=== PATIENT | male | born 1955 | race Caucasian/White ===

== ENCOUNTER 2019-12-17 07:01 | Inpatient (IN) ==
--- OUTSIDE RECORDS SUMMARY | 2019-12-17 07:05 | External Medical Summary | Continuity of Care Document ---
:1955 Author Name Ana Allen Address Unavailable Unavailable , Care Team Providers Name Role Phone Petey [email or web address] PCP, [email or web address] Unavailable Unavailable Problems Active medical history not documented Allergies and Adverse Reactions Allergy history not documented Medications Medications not documented Procedures Procedures not documented Immunizations Immunizations not documented Plan of Treatment Planned Observations Planned Goals not documented Results No Known Results Results not documented
[2019-12-17] MEDS ORDERED: DEXAMETHASONE SOD INJ 10 MG/ML VIAL IV ONE (07:32)
--- NOTE | 2019-12-17 07:41 | Emergency Department Note ---
Impression & Plan Bilateral leg weakness, Reflex loss, Fall, Lower back pain ED Provider Note NAME: WILLY PACHECO AGE: 64 SEX: M : 1955 ARRIVES VIA: Ambulance INFORMANT: [Patient] ED PROVIDER(S): [Jaxon Stahl MD] CHIEF COMPLAINT: Leg weakness HISTORY OF PRESENT ILLNESS: The patient is a 64-year-old male who states that he has been doing some heavy lifting last few days as he just moved. Last night he went to bed feeling fine. This morning, around 2 hours ago, he awoke and had some 3/10 pressure in his lower back. He had tingling in both feet. Patient got up to go to the bathroom and noticed his legs were weak. He did urinate without difficulty. On the way back from the bathroom, his legs gave out and he collapsed. He could not stand. He did call EMS. The patient has no headache, no neck pain. He has no upper extremity weakness or tingling. He does complain currently of some bilateral leg tingling basically from his knees to his toes. He feels his legs are weak and he cannot support his weight. There is no abdominal pain, he has had no diarrhea or vomiting. No rash. The patient states that he has been in baseline health. He never has had issues like this before. Of note, the patient did have a flu vaccination around 2 weeks ago. REVIEW OF SYSTEMS: See HPI for pertinent positives and negatives. A total of ten systems were reviewed and were otherwise negative. PMHx/PSHx: See Below SOCIAL HISTORY: See Below. PHYSICAL EXAM: GENERAL: Patient is in no acute distress. HEENT: No acute trauma, normocephalic atraumatic, mucous membranes moist, no nasal congestion, no scleral icterus. NECK: No stridor, no adenopathy, no meningismus, trachea is midline. LUNGS: Clear to auscultation bilaterally, no wheeze, no rhonchi, breath sounds equal. HEART: Without murmurs gallops or rubs, regular rate and rhythm. ABDOMEN: Soft, nontender, bowel sounds positive, no hernias, no peritonitis. EXTREMITIES: No cyanosis or edema, full range of motion of all the joints without pain or difficulty, no signs for acute trauma. Strong dorsalis pedis pulses bilaterally. NEUROLOGIC: Oriented x 3. He does have strong upper extremities. He has 2/4 reflexes at both biceps. The patient is able to plantar flex both feet but he cannot dorsiflex either foot. He cannot lift either leg off the bed. He does have sensation to both lower extremities bilaterally. There are no reflexes of the patella or Achilles bilaterally. He does have sensation at the groin and scrotum. SKIN: No rash, no jaundice, no diaphoresis. Back: Nontender thoracic or lumbar spine, no rash, no bony step-off. DIFFERENTIAL DIAGNOSIS: Infection, dehydration, metabolic abnormality, hypo/hyperglycemia, Lyme disease, transverse myelitis, Barbara Arshad syndrome, cord compression, disc herniation, epidural hematoma, epidural abscess, meningitis or encephalitis, electrolyte disturbance, anemia, hypoxia, cardiac sources, intracerebral event, toxicologic, neurologic, as well as other pathologies. EMERGENCY DEPARTMENT COURSE/PROCEDURES: Lumbar puncture: This procedure was performed by me. Risks and benefits of the procedure were discussed. Patient was placed on his left side with his knees to his chest. Lumbar landmarks were identified. Betadine was used for prep. Sterile drapes were applied. Using sterile technique, lidocaine was used to anesthetize the lumbar area. Using sterile technique, I was able to access the spinal canal with a 22-gauge spinal needle. There were no complications. Fluid was collected for analysis and sent to the lab. Patient tolerated the procedure well. Critical Care Note: I have personally spent 41 minutes of critical care time in the direct management of this patient. This includes bedside care, interpretation of diagnostic studies, and testing, discussion with consultants, patient, and family members, and other required patient management activities. This 41 minutes is in excess of all separately billable procedures. MEDICAL DECISION MAKING: There is no leukocytosis or concerning anemia. There is a normal platelet count. There is some renal insufficiency but this appears baseline looking back at previous testing. No concerning electrolyte abnormality. No liver enzyme elevation. The patient appears to be in a euthyroid state. B12 level was normal. Total CK was normal. CSF fluid did not show any white cells or red cells. The protein and glucose values were within normal range. The patient's CSF cultures are pending. MRIs of the thoracic and lumbar spine were performed, there was some arthritis, no cord lesion, no cord compression. Lyme disease testing was negative. Coronavirus testing was negative. On my exam, the patient had no reflexes in his Achilles or patella bilaterally. He had strong upper extremity reflexes. He had significant weakness in his lower extremities on strength testing. The patient received IV Decadron, he was given IV saline. A lumbar puncture was performed without difficulty. Please see above procedure note. The cause for the patient's symptoms is not completely clear. I am concerned though about Barbara Sealy syndrome. Transverse myelitis is a thought however, with a unremarkable MRI of the thoracic and lumbar spine, this seems less likely. I did speak with neurology here at [facility]. They recommended transfer to a tertiary care center. I spoke to [facility]. The neurologist there, , did accept the patient however, the facility was at capacity. Patient is on a waiting list for transfer and will likely be transferred to their facility tomorrow. They asked that we hospi talize the patient at our facility until a bed becomes available. I spoke to neurology. They were comfortable with keeping the patient here for now. I did speak with case management, the on-call hospitalist was consulted. At this point, the true cause for this condition is unclear, further work- up/testing is warranted. 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 Beliefs That Will Affect Care: None marital status: Current Living Situation: Spouse Feels Safe at Home: Yes Assistive Devices: None Allergies Allergies Allergy/AdvReac Type Severity Reaction Status Date / Time No Known Allergies Allergy Verified 12/17/19 07:37 Home Meds Home Medications Medication Instructions Recorded Confirmed aspirin 81 mg PO QAM 05/25/18 12/17/19 omega 1-ltj-hbl-fish oil [Fish Oil] 1,000 mg PO QAM 05/25/18 12/17/19 ascorbic acid (vitamin C) [Vitamin 500 mg PO QAM 12/17/19 12/17/19 C] atorvastatin 80 mg PO HS 12/17/19 12/17/19 losartan 50 mg PO QAM 12/17/19 12/17/19 multivitamin 1 tab PO QAM 12/17/19 12/17/19 Previous Rx's Medication Instructions Recorded metoprolol succinate 50 mg PO HS #30 tab 05/27/18 ticagrelor [Brilinta] 90 mg PO BID #60 tab 05/27/18 Results & Data (ED) Vital Signs Vital Signs - 24 hr 12/17/19 07:11 12/17/19 10:01 12/17/19 11:00 Temperature 37.0 C Temperature Source Oral Pulse Rate 67 Pulse Rate [Finger] 66 72 Respiratory Rate 16 16 16 Blood Pressure 150/99 H Blood Pressure [Right Arm] 141/93 H 130/88 Blood Pressure Mean 116 Blood Pressure Mean [Right Arm] 109 102 Pulse Oximetry 97 93 95 Oxygen Delivery Method Room Air Room Air Room Air Sepsis Recent Fever Within 48 Hours No Sepsis New/Unexplained Change in Mental Status N/A Sepsis Action Taken by Nursing No Action Required 12/17/19 13:00 Temperature Temperature Source Pulse Rate Pulse Rate [Finger] 69 Respiratory Rate 16 Blood Pressure Blood Pressure [Right Arm] 119/75 Blood Pressure Mean Blood Pressure Mean [Right Arm] 89 Pulse Oximetry 94 Oxygen Delivery Method Room Air Sepsis Recent Fever Within 48 Hours Sepsis New/Unexplained Change in Mental Status Sepsis Action Taken by Long-Term Medications Current Medication List: was personally reviewed by me Laboratory Data Attestation: I reviewed the patient's lab results. Result diagrams: 12/17/19 07:50 12/17/19 07:50 Lab Results 12/17/19 12/17/19 12/17/19 Range/Units 07:50 07:50 07:50 WBC 6.47 (4.8-10.8) K/uL RBC 4.59 L (4.7-6.1) M/uL Hgb 14.2 (14.0-18.0) g/dL Hct 43.0 (42-52) % MCV 93.7 (80-100) fL MCH 30.9 (25-34) pg MCHC 33.0 (32-36) g/dL RDW Std Deviation 47.0 H (36.4-46.3) fL RDW Coeff of Miri 13.7 (11.5-14.5) % Plt Count 231 (130-400) K/uL MPV 11.6 H (7.4-10.4) fL Immature Gran % (Auto) 0.2 % Neut % (Auto) 70.0 % Lymph % (Auto) 15.0 % Lucas % (Auto) 11.3 % Eos % (Auto) 2.9 % Baso % (Auto) 0.6 % Neut # (Auto) 4.53 (1.4-6.5) K/uL Lymph # (Auto) 0.97 L (1.2-3.4) K/uL Lucas # (Auto) 0.73 H (0.11-0.59) K/uL Eos # (Auto) 0.19 (0-0.5) K/uL Baso # (Auto) 0.04 (0-0.2) K/uL Immature Gran # (Auto) 0.01 (0.00-0.02) K/uL ESR 11 (0-14) mm/hr Sodium 141 (136-145) mmol/L Potassium 3.9 (3.5-5.1) mmol/L Chloride 111 H (98-107) mmol/L Carbon Dioxide 24 (21-32) mmol/L Anion Gap 6.0 (3-11) BUN 35 H (7-18) mg/dl Creatinine 1.68 H (0.6-1.4) mg/dl Est Cr Clr Drug Dosing 53.0 ml/min Est GFR ( Amer) 48.3 Est GFR (Non-Af Amer) 41.7 BUN/Creatinine Ratio 20.7 H (10-20) Glucose 100 H (70-99) mg/dl Calcium 9.1 (8.5-10.1) mg/dl Magnesium 2.1 (1.8-2.4) mg/dl Total Bilirubin 0.5 (0.2-1) mg/dl AST 24 (15-37) U/L ALT 37 (12-78) U/L Alkaline Phosphatase 82 (45-117) U/L Total Creatine Kinase 80 (39-308) U/L Total Protein 7.0 (6.4-8.2) gm/dl Albumin 3.4 (3.4-5.0) gm/dl Globulin 3.6 (2.5-4.0) gm/dl Albumin/Globulin Ratio 0.9 (0.9-2) Vitamin B12 (211-911) pg/ml TSH 1.770 (0.300-4.500) uIu/ml CSF Appearance CSF Color Xanthrochromic CSF WBC (0-5) /uL CSF RBC (0-) /uL CSF Cell Count Tube # CSF Mononuclear WBCs % % CSF Chemistry Tube # CSF Glucose (40-70) mg/dl CSF Total Protein (15-45) mg/dl Lyme Disease IgG Ab (Negative) Lyme Disease IgM Ab (Negative) COVID-19 Eval Order SARS-CoV-2, RNA, NAAT (NEGATIVE) 12/17/19 12/17/19 12/17/19 Range/Units 07:50 07:50 11:35 WBC (4.8-10.8) K/uL RBC (4.7-6.1) M/uL Hgb (14.0-18.0) g/dL Hct (42-52) % MCV (80-100) fL MCH (25-34) pg MCHC (32-36) g/dL RDW Std Deviation (36.4-46.3) fL RDW Coeff of Miri (11.5-14.5) % Plt Count (130-400) K/uL MPV (7.4-10.4) fL Immature Gran % (Auto) % Neut % (Auto) % Lymph % (Auto) % Lucas % (Auto) % Eos % (Auto) % Baso % (Auto) % Neut # (Auto) (1.4-6.5) K/uL Lymph # (Auto) (1.2-3.4) K/uL Lucas # (Auto) (0.11-0.59) K/uL Eos # (Auto) (0-0.5) K/uL Baso # (Auto) (0-0.2) K/uL Immature Gran # (Auto) (0.00-0.02) K/uL ESR (0-14) mm/hr Sodium (136-145) mmol/L Potassium (3.5-5.1) mmol/L Chloride (98-107) mmol/L Carbon Dioxide (21-32) mmol/L Anion Gap (3-11) BUN (7-18) mg/dl Creatinine (0.6-1.4) mg/dl Est Cr Clr Drug Dosing ml/min Est GFR ( Amer) Est GFR (Non-Af Amer) BUN/Creatinine Ratio (10-20) Glucose (70-99) mg/dl Calcium (8.5-10.1) mg/dl Magnesium (1.8-2.4) mg/dl Total Bilirubin (0.2-1) mg/dl AST (15-37) U/L ALT (12-78) U/L Alkaline Phosphatase (45-117) U/L Total Creatine Kinase (39-308) U/L Total Protein (6.4-8.2) gm/dl Albumin (3.4-5.0) gm/dl Globulin (2.5-4.0) gm/dl Albumin/Globulin Ratio (0.9-2) Vitamin B12 691 (211-911) pg/ml TSH (0.300-4.500) uIu/ml CSF Appearance CSF Color Xanthrochromic CSF WBC (0-5) /uL CSF RBC (0-) /uL CSF Cell Count Tube # CSF Mononuclear WBCs % % CSF Chemistry Tube # CSF Glucose (40-70) mg/dl CSF Total Protein (15-45) mg/dl Lyme Disease IgG Ab Negative (Negative) Lyme Disease IgM Ab Negative (Negative) COVID-19 Eval Order [facility] SARS-CoV-2, RNA, NAAT (NEGATIVE) 12/17/19 12/17/19 Range/Units 11:35 12:00 WBC (4.8-10.8) K/uL RBC (4.7-6.1) M/uL Hgb (14.0-18.0) g/dL Hct (42-52) % MCV (80-100) fL MCH (25-34) pg MCHC (32-36) g/dL RDW Std Deviation (36.4-46.3) fL RDW Coeff of Miri (11.5-14.5) % Plt Count (130-400) K/uL MPV (7.4-10.4) fL Immature Gran % (Auto) % Neut % (Auto) % Lymph % (Auto) % Lucas % (Auto) % Eos % (Auto) % Baso % (Auto) % Neut # (Auto) (1.4-6.5) K/uL Lymph # (Auto) (1.2-3.4) K/uL Lucas # (Auto) (0.11-0.59) K/uL Eos # (Auto) (0-0.5) K/uL Baso # (Auto) (0-0.2) K/uL Immature Gran # (Auto) (0.00-0.02) K/uL ESR (0-14) mm/hr Sodium (136-145) mmol/L Potassium (3.5-5.1) mmol/L Chloride (98-107) mmol/L Carbon Dioxide (21-32) mmol/L Anion Gap (3-11) BUN (7-18) mg/dl Creatinine (0.6-1.4) mg/dl Est Cr Clr Drug Dosing ml/min Est GFR ( Amer) Est GFR (Non-Af Amer) BUN/Creatinine Ratio (10-20) Glucose (70-99) mg/dl Calcium (8.5-10.1) mg/dl Magnesium (1.8-2.4) mg/dl Total Bilirubin (0.2-1) mg/dl AST (15-37) U/L ALT (12-78) U/L Alkaline Phosphatase (45-117) U/L Total Creatine Kinase (39-308) U/L Total Protein (6.4-8.2) gm/dl Albumin (3.4-5.0) gm/dl Globulin (2.5-4.0) gm/dl Albumin/Globulin Ratio (0.9-2) Vitamin B12 (211-911) pg/ml TSH (0.300-4.500) uIu/ml CSF Appearance Clear CSF Color Colorless Xanthrochromic No xanthochromia CSF WBC 0 (0-5) /uL CSF RBC 0 (0-) /uL CSF Cell Count Tube # 3 CSF Mononuclear WBCs % % CSF Chemistry Tube # 1 CSF Glucose 55 (40-70) mg/dl CSF Total Protein 44.2 (15-45) mg/dl Lyme Disease IgG Ab (Negative) Lyme Disease IgM Ab (Negative) COVID-19 Eval Order SARS-CoV-2, RNA, NAAT NEGATIVE (NEGATIVE) Administered Medications Discontinued Medications Dexamethasone (Dexamethasone Sod Inj 10 Mg/Ml Vial) 10 mg IV NOW ONE Stop: 12/17/19 07:33 Last Admin: 12/17/19 07:55 Dose: 10 mg Documented by: [id number] Gadobutrol (Gadobutrol 65ml Vial) 10 ml IV ONCE ONE Stop: 12/17/19 09:19 Last Admin: 12/17/19 09:19 Dose: 10 ml Documented by: [id number] Sodium Chloride (Nss) 500 mls @ 999 mls/hr IV .Q31M YOMI Stop: 12/17/19 08:15 Last Infusion: 12/17/19 10:20 Dose: 0 mls/hr Documented by: [id number] Admin: 12/17/19 09:50 Dose: 999 mls/hr Documented by: [id number] Lidocaine HCl (Xylocaine 1%/Sod Bicarb 20 Ml Vial) Confirm Administered Dose 20 ml INFIL .STK-MED ONE Stop: 12/17/19 11:14 Last Admin: 12/17/19 11:50 Dose: 20 ml Documented by: [id number] Imaging Data Radiologist's Impression: MR lumbar spine wo/w con CLINICAL HISTORY: Sudden onset bilateral leg weakness. Low back pain. History of prostate carcinoma. TECHNIQUE: Sagittal and axial T1, T2 and STIR images were obtained. Images were acquired before and after the administration of 10 cc of intravenous Gadavist COMPARISON STUDY: No previous studies for comparison. 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 The vertebral bodies and posterior elements appear intact. There is no abnormal bony signal present to suggest a marrow replacement process. L1-2: No disc protrusions or extrusions. No evidence of spinal canal or neural foraminal compromise. L2-3: There is a circumferential disc bulge, slightly asymmetric to the left. There is minimal spinal canal narrowing. There is no significant foraminal narrowing. L3-4: There is a minimal circumferential disc bulge. There is no significant spinal or foraminal stenosis L4-5: There is an annular fissure and tiny broad-based central disc protrusion. There is slight effacement the anterior thecal sac. There is mild bilateral foraminal narrowing. L5-S1: There is a broad-based disc bulge and tiny central disc protrusion. There is no significant spinal stenosis. There is mild bilateral foraminal narrowing. No lesions in the conus are visualized. Sagittal images demonstrate a 2.5 mm enhancing nodule involving a nerve root at the L4 level. This is not confirmed on axial images. IMPRESSION: 1. Mild multilevel spondylytic changes as described above. No evidence of high- grade spinal stenosis 2. No abnormalities of the conus are visualized 3. Sagittal images demonstrate 2.5 mm enhancing nodule involving a nerve root at the L4 level. This is nonspecific and could represent a tiny neurogenic tumor, ependymoma, or meningioma. A six-month follow-up MRI study is recommended MRI OF THE THORACIC SPINE WITH AND WITHOUT CONTRAST CLINICAL HISTORY: Sudden onset bilateral leg weakness. History of prostate cancer. COMPARISON: None. TECHNIQUE: Utilizing a 1.5 Kirsten magnet and dedicated coil, multiplanar, multiecho imaging of the thoracic spine was performed before and after the intravenous administration of 10 cc. FINDINGS: This exam is compromised by motion artifact. However, thoracic cord signal is likely normal. Apparent areas of increased cord signal on the axial images are not confirmed on the sagittal images. These foci are likely artifactual. The caliber of the thoracic cord is normal. There is no intracanalicular mass or fluid collection. Alignment of the thoracic spine is anatomic. Vertebral body heights are maintained. There is no marrow edema or marrow replacement. A few small T2 and T1 hyperintense lesions reflect hemangiomas. There is no abnormal enhancement within the thoracic canal. Several small disc protrusions are noted, the largest of which is a left paracentral disc protrusion at T7-T8 which effaces the ventral thecal sac. There are smaller disc protrusions at T5-T6 and T6-T7. Paravertebral soft tissues are unremarkable . Both kidneys are markedly enlarged and replaced by T2 hyperintense lesions. These are suboptimally assessed on this exam but favor innumerable renal cysts. IMPRESSION: 1. No definite thoracic cord signal abnormality. Apparent areas of increased cord signal on axial images are not confirmed on sagittal images and are probably artifactual/related to motion artifact. 2. No thoracic spine fracture. No evidence of metastatic disease within the thoracic spine. 3. Several small disc protrusions, as described above. 4. Markedly enlarged kidneys replaced by innumerable cysts consistent with auto somal dominant polycystic kidney disease. Head Trauma GCS Score: 15 Discharge Plan Visit Data Chief Complaint: Leg Weakness, Bilateral Stated Complaint: BACK PRESSURE/LEG WEAKNESS ED Provider: Jaxon Stahl Discharge Problem: Bilateral leg weakness, Reflex loss, Fall, Lower back pain Patient Disposition: Admitted As Inpatient Condition: Fair Forms Stand Alone Forms: [facility] Prescriptions Prescriptions: No Action aspirin 81 mg Tablet,Chewable 81 mg PO QAM RF: 0 omega 2-nfe-hve-fish oil [Fish Oil] 1,000 mg (120 mg-180 mg) Capsule 1,000 mg PO QAM RF: 0 Brilinta 90 mg Tablet 90 mg PO BID Qty: 60 RF: 0 metoprolol succinate 50 mg tablet extended release 24 hr 50 mg PO HS Qty: 30 RF: 0 multivitamin Tablet 1 tab PO QAM RF: 0 losartan 50 mg tablet 50 mg PO QAM RF: 0 ascorbic acid (vitamin C) [Vitamin C] 500 mg Tablet 500 mg PO QAM RF: 0 atorvastatin 40 mg tablet 80 mg PO HS RF: 0 Referrals Referrals: PCP,NO [Primary Care Provider] - Discharge Problem: Fall Qualifiers: Encounter type: initial encounter Qualified Code(s): W19.XXXA - Unspecified fall, initial encounter Lower back pain Qualifiers: Chronicity: acute Back pain laterality: midline Sciatica presence: without sciatica Qualified Code(s): M54.5 - Low back pain
[2019-12-17] MEDS ORDERED: SODIUM CHLORIDE 0.9% 500 ML IV SCH (07:45)
[2019-12-17 08:03] LABS: Basophils # (auto) 0.04 K/uL (0-0.2); Basophils % (auto) 0.6 %; Eosinophils # (auto) 0.19 K/uL (0-0.5); Eosinophils % (auto) 2.9 %; Hemoglobin 14.2 g/dL (14.0-18.0); Immature Granulocytes # (auto) 0.01 K/uL (0.00-0.02); Immature Granulocytes % (auto) 0.2 %; Lymphocytes # (auto) 0.97 K/uL (1.2-3.4); Mean Corpuscular Hemoglobin 30.9 pg (25-34); Mean Corpuscular Volume 93.7 fL (80-100); Mean Platelet Volume 11.6 fL (7.4-10.4); Monocytes # (auto) 0.73 K/uL (0.11-0.59); Monocytes % (auto) 11.3 %; Neutrophils # (auto) 4.53 K/uL (1.4-6.5); Platelet Count 231 K/uL (130-400); RDW Coefficient of Variation 13.7 % (11.5-14.5); Red Blood Count 4.59 M/uL (4.7-6.1); White Blood Count 6.47 K/uL (4.8-10.8)
--- NOTE | 2019-12-17 08:09 | Emergency Department Note ---
General (ED) Blank Date of Service December 17, 2019 ED Visit Note I personally saw, interviewed, and examined the patient. Patient's case was discussed with Dr. Stahl, ED attending, and I assisted with MDM. Please see attending documentation for full details. Resident Activity Tracking Resident Involvement: Resident Care Provided Care Provided: Adult ED
[2019-12-17 08:24] LABS: Albumin Level 3.4 gm/dl (3.4-5.0); BUN Creatinine Ratio 20.7 (10-20); Calcium 9.1 mg/dl (8.5-10.1); Est GFR (African American) 48.3; Est GFR (Non-African American) 41.7; Magnesium 2.1 mg/dl (1.8-2.4); Potassium 3.9 mmol/L (3.5-5.1)
[2019-12-17 08:35] LABS: Albumin Globulin Ratio 0.9 (0.9-2); Bilirubin,Total 0.5 mg/dl (0.2-1); Globulin 3.6 gm/dl (2.5-4.0); Thyroid Stimulating Hormone 1.77 uIu/ml (0.300-4.500)
[2019-12-17] MEDS ORDERED: GADOBUTROL 65ML VIAL IV ONE ×2 (09:18→23:13)
[2019-12-17 09:40] LABS: Lyme Ab IgG w/WB Rflx Negative (Negative); Lyme Ab IgM w/WB Rflx Negative (Negative)
--- NOTE | 2019-12-17 09:59 | Magnetic Resonance Report ---
MR lumbar spine wo/w con CLINICAL HISTORY: Sudden onset bilateral leg weakness. Low back pain. History of prostate carcinoma. TECHNIQUE: Sagittal and axial T1, T2 and STIR images were obtained. Images were acquired before and a fter the administration of 10 cc of intravenous Gadavist COMPARISON STUDY: No previous studies for comparison. OBSERVATIONS: Relief Worker images reveal innumerable bilateral large renal cysts suggestive of polycystic kidney disease. The vertebral bodies and posterior elements appear intact. There is no abnormal bony signal present t o suggest a marrow replacement process. L1-2: No disc protrusions or extrusions. No evidence of spinal canal or neural foraminal compromise. L2-3: There is a circumferential disc bulge, slightly asymmetric to the left. There is minimal spinal canal narrowing. There is no significant foraminal narrowing. L3-4: There is a minimal circumferential disc bulge. There is no significant spinal or foraminal sten osis L4-5: There is an annular fissure and tiny broad-based central disc protrusion. There is slight effac ement the anterior thecal sac. There is mild bilateral foraminal narrowing. L5-S1: There is a broad-based disc bulge and tiny central disc protrusion. There is no significant sp inal stenosis. There is mild bilateral foraminal narrowing. No lesions in the conus are visualized. Sagittal images demonstrate a 2.5 mm enhancing nodule involvi ng a nerve root at the L4 level. This is not confirmed on axial images. IMPRESSION: 1. Mild multilevel spondylytic changes as described above. No evidence of high-grade spinal stenosis 2. No abnormalities of the conus are visualized 3. Sagittal images demonstrate 2.5 mm enhancing nodule involving a nerve root at the L4 level. This i s nonspecific and could represent a tiny neurogenic tumor, ependymoma, or meningioma. A six-month fol low-up MRI study is recommended ACT 112: Negative or not required by law. Electronically signed by: Emiliano Muñiz M.D. 12/17/2019 9:58 AM
--- NOTE | 2019-12-17 10:06 | Magnetic Resonance Report ---
MRI OF THE THORACIC SPINE WITH AND WITHOUT CONTRAST CLINICAL HISTORY: Sudden onset bilateral leg weakness. History of prostate cancer. COMPARISON: None. TECHNIQUE: Utilizing a 1.5 Kirsten magnet and dedicated coil, multiplanar, multiecho imaging of the th oracic spine was performed before and after the intravenous administration of 10 cc. FINDINGS: This exam is compromised by motion artifact. However, thoracic cord signal is likely normal . Apparent areas of increased cord signal on the axial images are not confirmed on the sagittal image s. These foci are likely artifactual. The caliber of the thoracic cord is normal. There is no intraca nalicular mass or fluid collection. Alignment of the thoracic spine is anatomic. Vertebral body heigh ts are maintained. There is no marrow edema or marrow replacement. A few small T2 and T1 hyperintense lesions reflect hemangiomas. There is no abnormal enhancement within the thoracic canal. Several sma ll disc protrusions are noted, the largest of which is a left paracentral disc protrusion at T7-T8 wh ich effaces the ventral thecal sac. There are smaller disc protrusions at T5-T6 and T6-T7. Paraverteb ral soft tissues are unremarkable. Both kidneys are markedly enlarged and replaced by T2 hyperintense lesions. These are suboptimally assessed on this exam but favor innumerable renal cysts. IMPRESSION: 1. No definite thoracic cord signal abnormality. Apparent areas of increased cord signal on axial lino ges are not confirmed on sagittal images and are probably artifactual/related to motion artifact. 2. No thoracic spine fracture. No evidence of metastatic disease within the thoracic spine. 3. Several small disc protrusions, as described above. 4. Markedly enlarged kidneys replaced by innumerable cysts consistent with autosomal dominant polycys tic kidney disease. ACT 112: Negative or not required by law. Electronically signed by: Yahir Watson M.D. 12/17/2019 10:05 AM
[2019-12-17] MEDS ORDERED: XYLOCAINE 1%/SOD BICARB 20 ML VIAL INFIL ONE (11:13)
--- NOTE | 2019-12-17 11:31 | History & Physical Report ---
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 Neurology is going to evaluate. spinal tap was performed. Negative inspiratory force and vital capacity will be assessed with the bedside every shift patient is placed on telemetry. Patient is a negative Lyme titer in the ER anaplasmosis has been ordered. Sed rate and CK are negative. The patient had a Covid test sent due to his consideration of transfer to [facility]. [facility] was full. After evaluation by neurology in the ER Gene Arshad is felt to be less likely in the immunoglobulin was initially considered was held, neurology feels they wish to proceed with further steroids at this time and also order an imaging study of his abdomen given his history of prostate cancer. Dexamethasone 4 every 8 was ordered he did receive 10 in the ER on presentation (2) Hypertension: Patient remains on losartan and metoprolol for his hypertension has been on these for years (3) Coronary artery disease: Patient remains on aspirin and Brilinta in addition to his antihypertensive control as above (4) DVT prophylaxis: Heparin therapy for DVT prevention be started tomorrow morning least 12 hours after spinal tap History of Present Illness Leg Primary Care Provider: NO PCP The patient is a 64-year-old male who states that he has been doing some moderate lifting last few days as he just moved. He says that the lifting was no more than 10 or 15 pounds and he did not notice any changes in his body after he was moving some equipment at home. Last night he went to bed feeling fine. This morning, around 2 hours prior to presentation he awoke and had some 3/10 pressure in his lower back. He had tingling in both feet. Patient got up to go to the bathroom patient did urinate standing without difficulty. On the way back from the bathroom, his legs gave out and he collapsed. He could not stand. Attempted to crawl across the floor which she was unsuccessful he did call EMS. The patient has no headache, no neck pain. He has no upper extremity weakness or tingling. He has no facial asymmetry though he complained of numbness to the emergency room physician to me he said his peripheral sensation was completely intact. He feels his legs are weak and he cannot support his weight. Patient can slightly flex and abduct his knees although he does break to minor pressure he has no pain associate this at all he is areflexic there is no clonus Patient says he is never had issues like this before. He did have an influenza vaccine somewhere in the last 2 weeks. His family says it was the higher dose vaccine. Patient negative imaging of his thoracic and lumbar spine and relatively unremarkable labs. His significant past history is inclusive of polycystic kidney disease and prostate cancer with a prostatectomy in 2017 and a postoperative hernia which required mesh repair Allergies Allergy/AdvReac Type Severity Reaction Status Date / Time No Known Allergies Allergy Verified 12/17/19 07:37 Home Medications Home Medications Medication Instructions Recorded Confirmed Type aspirin 81 mg PO QAM 05/25/18 12/17/19 History omega 8-kwd-cqz-fish oil [Fish Oil] 1,000 mg PO QAM 05/25/18 12/17/19 History metoprolol succinate 50 mg PO HS #30 tab 05/27/18 12/17/19 Rx ticagrelor [Brilinta] 90 mg PO BID #60 tab 05/27/18 12/17/19 Rx ascorbic acid (vitamin C) [Vitamin 500 mg PO QAM 12/17/19 12/17/19 History C] atorvastatin 80 mg PO HS 12/17/19 12/17/19 History losartan 50 mg PO QAM 12/17/19 12/17/19 History multivitamin 1 tab PO QAM 12/17/19 12/17/19 History Past Med/Surg History Medical History (Updated 12/17/19 @ 15:57 by Lance Toledo MD) Abnormal kidney function Elevated glucose HLD (hyperlipidemia) Hypertension Hypertension Obesity (BMI 30-39.9) Polycystic kidney Polycystic kidney ST elevation myocardial infarction (STEMI) Surgical History H/O prostatectomy S/P appendectomy Status post hernia repair Family History Father , age 74 of heart failure CHF (congestive heart failure) Mother , age 84 of complications of senile dementia of the Alzheimer's type. 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 [employer] Feels Safe at Home: Yes Assistive Devices: Glasses Review of Systems Review of Systems: Moderate distress and fatigue no headache, blurry or double vision no speech or swallowing issues no chest pain, pressure or palpitations no shortness of breath, cough or wheezes no abdominal pain, nausea or vomiting, diarrhea or constipation no dysuria, hematuria or frequency no focal joint pain or swelling no back pain, CVA tenderness or radicular pain no bruising, bleeding or rashes Bilateral lower extremity weakness is of some preserved hip flexion and plantar flexion no complaints of anxiety or depression. Physical Exam Physical Exam: The patient appeared well nourished and normally developed. Vital signs as documented. Head exam is normocephalic atraumatic no scleral icterus Neck is without JVD, thyromegaly, or carotid bruits. Lungs are clear to auscultation, no focal loss of breath sounds Cardiac exam, Rhythm is regular.. No murmurs, rubs or gallops. Abdominal exam reveals normal bowel sounds, soft non tender, no masses Extremities are nonedematous and both pedal pulses are present Neurologic exam is alert and oriented, patient has weakness to his lower legs he is areflexic is no clonus these are his lower extremities his upper extremities are completely normal Skin is without bruises or rashes Psychologically is without concerns for anxiety or depression. Results & Data Results & Data ([facility]) Vital Signs (Past 12 Hours) Vital Signs Temp Pulse Pulse Resp BP BP Pulse Ox 12/17/19 11:00 72 16 130/88 95 12/17/19 10:01 66 16 141/93 H 93 12/17/19 07:11 98.6 F 67 16 150/99 H 97 MRI of the lumbar spine with and without contrast 12/17/2019 mild multilevel spondylitic change no high-grade stenosis, no abnormalities of the conus, 2.5 mm enhancing nodule involving the nerve root the L4 level, this is nonspecific 6- month follow-up recommended MRI of the thoracic spine with and without contrast 12/17/2019 no defined thoracic cord signal abnormality, no fracture, no metastatic disease several small disc protrusions polycystic kidneys are seen Lyme disease is negative PG Care Time/CCT Total # of Minutes Spent Total Time Spent with Patient: Total time spent is greater than 50% in coordination of care (as documented) at patient's floor/unit and/or counseling patient: Coding Level of Care Code 27348 Initial Inpt Care Lvl 3 Diagnoses Bilateral leg weakness R29.898 Hypertension I10 Coronary artery disease I25.10 DVT prophylaxis Z29.9
[2019-12-17 12:30] LABS: Appearance CSF Clear; CSF Count Tube # 3; CSF Xanthrochromic No xanthochromia; Color CSF Colorless; Red Blood Cell CSF (A) 0 /uL (0-); Red Blood Cell CSF (B) 0 /uL (0-); White Blood Cell CSF (A) 0 /uL (0-5); White Blood Cell CSF (B) 0 /uL (0-5)
[2019-12-17 12:35] LABS: CSF Chemistry Tube # 1
[2019-12-17 12:40] LABS: CSF Glucose 55 mg/dl (40-70); Total Protein CSF 44.2 mg/dl (15-45)
[2019-12-17 14:41] LABS: Cryptococcus neoformans/ga PCR Not Detected (NotDetected); Cytomegalovirus PCR Not Detected (NotDetected); Enterovirus PCR Not Detected (NotDetected); Escherichia coli K1 PCR Not Detected (NotDetected); Haemophilius influenzae PCR Not Detected (NotDetected); Herpes Simplex Virus 1 PCR Not Detected (NotDetected); Herpes Simplex Virus 2 PCR Not Detected (NotDetected); Human Herpes Virus 6 PCR Not Detected (NotDetected); Human Parechovirus PCR Not Detected (NotDetected); Listeria monocytogenes PCR Not Detected (NotDetected); Neisseria meningitidis PCR Not Detected (NotDetected); Streptococcus agalactiae PCR Not Detected (NotDetected); Streptococcus pneumoniae PCR Not Detected (NotDetected); Varicella Zoster Virus PCR Not Detected (NotDetected)
--- NOTE | 2019-12-17 15:36 | Neurology Consultation ---
Date of Consultation December 17, 2019 Assessment & Plan (1) Bilateral leg weakness: (2) Reflex loss: (3) Numbness and tingling of both legs: this patient has acute onset of lower extremity weakness bilaterally (rather suddenly ) early this morning. He has significant paresis in the legs but he also has significant sensory loss to pin and marked vibratory sense loss in the lower extremities. He has no upper motor neuron signs and reflexes are decreased to absent in the legs. There are no abnormalities in the upper extremities with sensation, motor, or other neurologic deficits. He has no sensory level past the uppers thighs. He does have low back pain. He has no neck pain or other symptoms. I doubt this is Guillain-Lorton syndrome due to the sudden onset and some of the mix signs in the legs. An acute cord compression has been ruled out by MRI in the thoracic and lumbar spine. We did not check the cervical spine although he has no symptoms referable to. A transverse myelitis also has a longer time frame. The time frame is more consistent with a stroke and I wonder about a lower cord stroke. Infarct of the artery of Adamkiewicz can give a lower spinal cord syndrome referral to the legs. LP showed no evidence of inflammation or infection. The patient may be making some improvements already in the ER and this may be due to the Decadron that was given him by the emergency room physician Recommendations: 1. CT scan of the abdomen and evaluate for aortic aneurysm as well. 2. we may need to repeat the MRI of the thoracic spine is and obtain a cervical spine MRI. 3. Physical therapy and occupational therapy consult. 4. could consider additional Decadron but hold on IVIG for now. Overall, I spent a total of 110 minutes with this case including review of records, review of MRI films, direct evaluation the patient bedside at discussing the case with the patient at bedside as well as Dr. Stahl and Dr. Flor at bedside including differential diagnosis and treatment options. History of Present Illness Reason for Consultation: patient is a 64-year-old well was asked to see the request of Dr. Flor, for neurologic consultation regarding acute lower extremity weakness Requesting Physician: Dr. Flor Attending Physician: Dr. Flor History of Present Illness this patient has a history of prostate cancer post surgery through 4 years ago. He had a NV in April of 2018 and has polycystic kidney disease. Patient has been on 81 milligram aspirin, atorvastatin, losartan, metoprolol, and Brilinta. The patient has been very active, moving boxes and helping to organize his new house in [place], and has had no recent viral or GI illness in the last 4- 6 weeks. He has had no trauma or ongoing pain or symptoms in his spine or limbs. Patient went to bed at 2230 on December 15 in his usual state of health. He woke up at 0500 on December 16 and felt that his low back had a pressure like pain in the center. He stood up and walked to the bathroom. He urinated and after urination he suddenly collapsed due to leg weakness bilaterally. There was no new electric pain. He could not move his legs and crawled back to the bedroom. He arrived to the emergency room December 16 at 0711, with a temperature of 37.0, pulse of 67 and regular, blood pressure 150/99, respiratory rate 16 and comfortable, and O2 saturation 97 percent on room air. He could not move his legs hardly at all according to Dr. Stahl, emergency room physician. He had no sensory symptoms or any other pain other than his lower back pain of a pressure sensation. No radiating pain. He had no incontinence of urine or bowel. He had no symptoms in his upper extremities, cervical spine, or head. CBC was unremarkable. Chem profile showed a BUN of 35 and creatinine of 1.68. Glucose was 100. Calcium, magnesium, liver profile, B12, and TSH were normal. Sed rate was 11 and total CK was 80. Lyme disease testing and Covid-19 testing were unremarkable. An LP was performed and was clear and colorless. There was no xanthochromia and 0 white cells and 0 red cells. Glucose was 55 and total protein was 44. bio fire was unremarkable. MRI of the thoracic spine showed no definite thoracic cord signal abnormalities ( apparent areas of increased cord signal on axial images were not confirmed on sagittal) there were some minor disc protrusions but no signal spinal stenosis. MRI of the lumbar spine showed mild multilevel nonspecific degenerative / spondylitic changes with no spinal stenosis. The conus was unremarkable. Allergies Allergy/AdvReac Type Severity Reaction Status Date / Time No Known Allergies Allergy Verified 12/17/19 07:37 Home Medications Home Medications Medication Instructions Recorded Confirmed Type aspirin 81 mg PO QAM 05/25/18 12/17/19 History omega 3-ika-crv-fish oil [Fish Oil] 1,000 mg PO QAM 05/25/18 12/17/19 History metoprolol succinate 50 mg PO HS #30 tab 05/27/18 12/17/19 Rx ticagrelor [Brilinta] 90 mg PO BID #60 tab 05/27/18 12/17/19 Rx ascorbic acid (vitamin C) [Vitamin 500 mg PO QAM 12/17/19 12/17/19 History C] atorvastatin 80 mg PO HS 12/17/19 12/17/19 History losartan 50 mg PO QAM 12/17/19 12/17/19 History multivitamin 1 tab PO QAM 12/17/19 12/17/19 History Patient History Medical History (Updated 12/17/19 @ 15:57 by Lance Toledo MD) Abnormal kidney function Elevated glucose HLD (hyperlipidemia) Hypertension Hypertension Obesity (BMI 30-39.9) Polycystic kidney Polycystic kidney ST elevation myocardial infarction (STEMI) Surgical History H/O prostatectomy S/P appendectomy Status post hernia repair Family History Father , age 74 of heart failure CHF (congestive heart failure) Mother , age 84 of complications of senile dementia of the Alzheimer's type. 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 [employer] Feels Safe at Home: Yes Assistive Devices: None Review of Systems Constitutional: + weakness; no fever and no fatigue Eyes: no diplopia, no eye pain and no worsening vision Ear, Nose, Mouth, Throat: no ear pain, no tinnitus, no hearing loss, no dizziness, no hoarseness and no dysphagia Respiratory: no cough and no dyspnea Cardiovascular: no chest pain, no palpitations and no lightheadedness Gastrointestinal: no abdominal pain, no nausea and no vomiting Genitourinary: no dysuria, no urinary frequency and no urinary incontinence Musculoskeletal: + back pain; no neck pain, no radicular pain, no joint pain and no myalgia Integumentary: no rash and no lesions Neurologic: + localized weakness and + numbness; no gait abnormality, no generalized weakness, no tingling, no tremor(s), no abnormal movements, no headache(s), no abnormal speech, no confusion and no memory loss Psychiatric: no depression, no irritability, no anxiety, no difficulty concentrating, no confusion and no hallucinations Endocrine: no fatigue and no flushing Hematologic / Lymphatic: no easy bleeding and no easy bruising Allergy / Immunological: no urticaria and no problem reported Exam (Neuro) Physical Exam: The patient is right-handed. The patient is awake, alert, and attentive. Speech is normal without any aphasia or dysarthria. She can name objects, repeat phrases, and has normal spontaneous speech. Mentation and thought processes are intact, with orientation to person, place and time, and normal fund of knowledge. Attention and concentration are normal. Mood and affect are normal and appropriate. General appearance and grooming are normal. Short and long-term memory are intact. The discs are sharp with positive venous pulsations bilaterally. There are no exudates, hemorrhages, or blood vessel changes seen. Pupils are 4 mm bilaterally and reactive to light. Extraocular eye muscles are intact without nystagmus. Visual acuity and visual luo seem normal grossly to confrontation. There are no deficits to sensation in the face in all 3 distributions of the fifth cranial nerve bilaterally. Corneal reflexes are positive bilaterally. Facial strength and symmetry was normal bilaterally. Hearing seems normal to whisper and finger rub bilaterally. Palate moves well without asymmetry. There is normal sternocleidomastoid and trapezius (shoulder shrug) strength bilaterally. Tongue is midline with good strength bilaterally. Neck has a full range of motion without discomfort. There are no cervical bruits bilaterally. There are no cranial or ocular bruits. Heart is without murmur. There is a regular rhythm and rate. Cervical, thoracic, and lumbar spine are nontender to palpation. Gait is not tested. Stance sitting up in bed is poor he has to hold onto the guard rails in order to maintain a sitting up stance. With outstretched arms there is no drift. There are no resting, postural, or a ction tremors. There is no ataxia with finger to nose testing. There is good facility in the hands. No other abnormal involuntary movements are noted. Motor strength is 5/5 diffusely in the arms bilaterally including deltoids, biceps, triceps, brachioradialis, wrist flexors and extensors, boring machine feeder, and intrinsic hand muscles. Motor strength is 1/5 in the hip flexors bilaterally, 2/5 in the hip adductor and abductors bilaterally, 1 to 2/5 in the quadriceps bilaterally although the left moved a little better than the right, 4/5 in the gastrocnemius bilaterally, 3/5 in the tibialis anterior bilaterally and 1/5 in the toes with flexion and extension bilaterally. The limbs have good tone in the arms and decreased tone in the legs. There is no atrophy noted in the muscles. Muscle bulk is normal, there is no tenderness to palpation, no myotonia to percussion, and no fasciculations seen. Sensory examination Reveals a decreased sensation to pinprick diffusely in the legs up to the mid to upper thighs bilaterally. There is marked/profound vibratory sense loss in the feet and mild to moderate position sense loss in the toes. Reflexes are 2/4 in the biceps, triceps, and brachioradialis tendons bilaterally. quadriceps reflexes were trace with reinforcement maneuvers right greater than left side and Achilles tendon reflexes were absent bilaterally. There is no clonus bilaterally. Toes Were neutral with plantar stimulation bilaterally. Peripheral pulses are present and of normal quality distally in all 4 limbs. There is no peripheral edema noted in the limbs. Results & Data ([facility]) Vital Signs (Past 12 Hours) Vital Signs Temp Pulse Pulse Resp BP BP Pulse Ox 12/17/19 14:31 74 16 124/81 94 12/17/19 14:00 71 16 123/83 93 12/17/19 13:00 69 16 119/75 94 12/17/19 11:00 72 16 130/88 95 12/17/19 10:01 66 16 141/93 H 93 12/17/19 07:11 37.0 C 67 16 150/99 H 97 PG Care Time/CCT Total # of Minutes Spent Total Time Spent with Patient: Total time spent is greater than 50% in coordination of care (as documented) at patient's floor/unit and/or counseling patient: Coding Level of Care Code 11956 Office/OBS Consult Lvl 5 Diagnoses Bilateral leg weakness R29.898 Reflex loss R29.2 Numbness and tingling of both legs R20.0; R20.2 Time Spent (min) 110
[2019-12-17] MEDS ORDERED: DEXAMETHASONE SOD INJ 4 MG/ML VIAL IV SCH (16:56)
[2019-12-17] MEDS ORDERED: ACETAMINOPHEN 325 MG TAB PO PRN (16:56)
[2019-12-17] MEDS ORDERED: ONDANSETRON INJ 2 MG/ML 2 ML VIAL IV PRN (16:56)
[2019-12-17] MEDS ORDERED: POLYETHYLENE (MIRALAX) 17 GM PACK PO PRN (16:56)
[2019-12-17] MEDS ORDERED: DEXAMETHASONE SOD INJ 4 MG/ML VIAL ONE (18:09)
[2019-12-17] MEDS: SODIUM CHLORIDE 0.9% 1000ML 1,000 ML IV SCH (18:11)
[2019-12-17 18:43] LABS: Appearance Urine Clear (Clear); Bacteria Urine Automated Negative (Negative); Bilirubin Urine Negative (Negative); Blood Urine 1+ (Negative); Color Urine Yellow; Epithelial Cell Urine Auto 0-5 /lpf (0-5); Glucose Urine UA Negative (Negative); Ketones Urine Negative (Negative); Leukocyte Esterase Urine Negative (Negative); Nitrite Urine Negative (Negative); Protein Urine Negative (Negative); Urobilinogen Urine Negative (Negative)
[2019-12-17] MEDS: TICAGRELOR 90 MG TAB PO SCH (20:29)
[2019-12-17] MEDS: ATORVASTATIN 40 MG TAB PO SCH (20:30)
[2019-12-17] MEDS: METOPROLOL SUCC 50MG EXT REL TAB PO SCH (20:30)
[2019-12-18] MEDS: SODIUM CHLORIDE 0.9% 1000ML 1,000 ML IV SCH ×3 (00:12→17:56)
[2019-12-18] MEDS: DEXAMETHASONE SOD PHOSPHATE 4 MG in SYRINGE 0 ML IV SCH ×3 (01:47→18:05)
[2019-12-18 04:47] LABS: Hemoglobin 13.5 g/dL (14.0-18.0); Mean Corpuscular Hemoglobin 30.4 pg (25-34); Mean Corpuscular Hgb Conc 32.9 g/dL (32-36); Mean Corpuscular Volume 92.3 fL (80-100); Mean Platelet Volume 11.8 fL (7.4-10.4); Platelet Count 231 K/uL (130-400); RDW Coefficient of Variation 13.7 % (11.5-14.5); RDW Standard Deviation 46.8 fL (36.4-46.3); Red Blood Count 4.44 M/uL (4.7-6.1); White Blood Count 10.84 K/uL (4.8-10.8)
[2019-12-18 05:22] LABS: Calcium 8.3 mg/dl (8.5-10.1); Creatinine Clr Calc Pharmacy 58.6 ml/min; Est GFR (African American) 54.6; Est GFR (Non-African American) 47.1; Potassium 4.3 mmol/L (3.5-5.1)
--- NOTE | 2019-12-18 07:20 | Magnetic Resonance Report ---
MRI OF THE BRAIN WITHOUT CONTRAST CLINICAL HISTORY: bilateral leg weakness HISTORY OF PROSTATE CARCINOMA. COMPARISON STUDY: None. FINDINGS: Sagittal T1, axial diffusion, proton density and T2 weighted axial, coronal FLAIR, and axial T1-weigh kenyon images were acquired. There is a small arachnoid cyst in the region of the left sylvian fissure measuring 3 cm. Axial diffusion-weighted images reveal no evidence of acute or subacute infarction. There is a cavum septa pellucida and cavum vergae. There is a suspected old hemorrhagic focus in the left cerebellar hemisphere. There is a right maxillary sinus retention cyst Proton density T2-weighted and FLAIR images reveal scattered foci of increased T2 signal within the w cy matter, likely on a small vessel basis. There are no abnormal flow voids. IMPRESSION: 1. No acute intracranial findings 2. No evidence of acute or subacute infarction 3. Incidental cavum septa pellucida and cavum vergae 4. Small arachnoid cyst in the region of the left sylvian fissure ACT 112: Negative or not required by law. Electronically signed by: Emiliano Muñiz M.D. 12/18/2019 7:19 AM
--- NOTE | 2019-12-18 08:13 | Magnetic Resonance Report ---
CERVICAL SPINE MRI WITH AND WITHOUT CONTRAST HISTORY: bilateral leg weakness TECHNIQUE: Multiplanar multisequence MRI of the cervical spine was performed both before and after th e use of intravenous contrast. COMPARISON STUDY: None. FINDINGS: Straightening of the cervical spine. No fracture or subluxation. Moderate disc space narrow ing at C5-C6 with small endplate osteophytes. The cervical spinal cord demonstrates a normal signal i ntensity. No abnormal enhancement within the cervical spine. Prevertebral soft tissues and the C1-C2 interval are intact. C2-C3: No significant central canal or neural foraminal narrowing. C3-C4: Small broad-based posterior disc osteophyte complex resulting in partial effacement of the ant erior thecal sac without cord deformity. Therefore, no significant central canal or neural foraminal narrowing. C4-C5: Small broad-based posterior disc osteophyte complex resulting in partial effacement of the ant erior thecal sac without cord deformity. This results in mild central canal and mild left-sided neura l foraminal narrowing. C5-C6: Broad-based posterior disc osteophyte complex which abuts but does not significantly deform th e anterior cord resulting in moderate central canal and severe bilateral neural foraminal narrowing. This is primarily due to the uncovertebral hypertrophy. C6-C7: Small broad-based posterior disc osteophyte complex without significant central canal narrowin g. There is moderate left and mild right neural foraminal narrowing due to the uncovertebral hypertro phy. C7-T1: No significant central canal or neural foraminal narrowing. IMPRESSION: 1. Straightening of the cervical spine. 2. No fracture or subluxation. 3. Multilevel cervical spondylosis as described above most pronounced at the C5-C6 level which demons trates moderate central canal and severe bilateral neural foraminal narrowing. ACT 112: Negative or not required by law. Electronically signed by: Nadeem Gonzalez M.D. 12/18/2019 8:11 AM
[2019-12-18] MEDS: TICAGRELOR 90 MG TAB PO SCH (08:21)
[2019-12-18] MEDS: LOSARTAN POTASSIUM 50 MG TAB PO SCH (08:21)
[2019-12-18] MEDS: OMEGA-3 (PURIFIED FISH OIL) 1 GM CAP PO SCH (08:21)
[2019-12-18] MEDS: HEPARIN SOD 5,000 UNIT/0.5 ML VIAL SQ SCH ×2 (08:21→21:07)
[2019-12-18] MEDS: ASPIRIN 81 MG ECTAB PO SCH (08:21)
[2019-12-18] MEDS: MULTIVITAMIN TAB PO SCH (08:21)
[2019-12-18] MEDS: ASCORBIC ACID 500 MG TAB PO SCH (08:21)
--- NOTE | 2019-12-18 11:41 | Neurology Progress Note ---
Date of Service December 18, 2019 Assessment & Plan (1) Bilateral leg weakness: (2) Reflex loss: (3) Numbness and tingling of both legs: This patient has acute onset of lower extremity weakness bilaterally (rather suddenly ) early the morning December 16.. He has significant paresis in the legs but he also has significant sensory loss to pin and marked vibratory sense loss in the lower extremities. Today his neurologic examination is very similar although he is moving the left lower extremity better than he did yesterday ( the right lower extremity is about the same. There are no new symptoms and no progression of symptoms. He has no upper motor neuron signs and reflexes are absent in the legs with neutral toes to plantar stimulation. There are no abnormalities in the upper extremities with sensation, motor, or other neurologic deficits. He has no sensory level past the uppers thighs. He does have low back pain, but he has no abdominal pain. He has no bowel or bladder dysfunction. He has no neck pain or other symptoms. I doubt this is Guillain-Diablo syndrome due to the sudden onset and bilateral discreet motor and sensory issues in the legs. Also, he is not progressing neurologically (in fact, he is improving). An acute cord compression has been ruled out by MRI in the thoracic and lumbar spine. Although the MRI of the cervical spine has some C5-6 stenosis, there is no cord impingement. A transverse myelitis should have a progression to it and the LP showed no inflammation or infection. again, fact that he is improved some within 24 hours, would speak against a transverse myelitis The time frame is more consistent with a stroke and I wonder about a lower cord stroke. Infarct of the artery of Adamkiewicz (or other branch) can give a lower spinal cord syndrome referable to the legs. other abdominal vascular issues need to be considered as well. The improvements may be due to the Decadron that was given him Recommendations: 1. CT scan of the abdomen and evaluate for aortic aneurysm. 2. Patient may need an arteriogram of the abdominal aorta and branch vessels. 3. Patient may need repeat lower thoracic MRI 3. Physical therapy and occupational therapy consult. 4. Could consider additional Decadron but hold on IVIG for now. Overall, I spent a total of 65 minutes with this case including review of records, review of MRI films, direct evaluation the patient bedside at discussion of the case with the patient (and ) at bedside, and Dr. Alcantar, including differential diagnosis and treatment options. Admission and Anticipated Discharge Date Admission Date: December 17, 2019 Subjective feels he is improved with his leg strength particularly on the left compared to yesterday. He has no new symptoms and nothing in his abdomen, back, chest, or upper extremities. An MRI of the cervical spine showed some C5-6 spinal stenosis without cord impingement due to disc and bone. There were no cord abnormalities. MRI of the brain showed a few white matter spots of a nonspecific nature and no other abnormalities. Vital signs are stable and blood pressure is 137/88 and he is afebrile. CSF Gram stain was negative and CSF cultures show no growth to date. Results & Data ([facility]) Vital Signs (Past 12 Hours) Vital Signs Temp Pulse Resp BP Pulse Ox Pulse Ox 12/18/19 08:20 36.8 C 74 21 137/88 93 12/18/19 04:00 36.8 C 71 20 115/80 96 12/18/19 00:00 36.8 C 85 22 141/82 H 95 95 Exam (Neuro) Physical Exam: He is awake and alert. Speech is without aphasia or dysarthria. Mood and affect seem normal appropriate. Thought processes are intact with no short or penitentiary memory problems or confusion. Extraocular eye muscles are intact without nystagmus. There is no facial droop. Tongue is midline. Neck is supple. Coordination is normal in the arms and strength is 5/5 diffusely in the arms bilaterally without sensory deficit. There is no sensory deficits on the thorax including chest abdomen or back. Leg strength is similar to yesterday's exam except he can move his left leg better at the hip and he can dorsiflex the left leg better and wiggle the toes a little better on the left than he did before. The right leg is about the same. Reflexes are absent in the quadriceps and Achilles tendons and toes are neutral to plantar stimulation. He has decreased sensation to pin to the upper thighs bilaterally. PG Care Time/CCT Total # of Minutes Spent Total Time Spent with Patient: Total time spent is greater than 50% in coordination of care (as documented) at patient's floor/unit and/or counseling patient: Coding Level of Care Code 00034 Subseq Hosp Care Lvl 3 Diagnoses Bilateral leg weakness R29.898 Reflex loss R29.2 Numbness and tingling of both legs R20.0; R20.2 Time Spent (min) 65 Comment Add [id number] to the [id number]
--- NOTE | 2019-12-18 12:42 | XCELERA ---
[id number] \\[id number]
--- NOTE | 2019-12-18 13:24 | Electrocardiogram Report ---
Test Reason : Blood Pressure : / mmHG Vent. 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
[2019-12-18] MEDS ORDERED: GADOBUTROL 65ML VIAL IV ONE (14:48)
--- NOTE | 2019-12-18 15:19 | Magnetic Resonance Report ---
MR thoracic spine wo/w con CLINICAL HISTORY: Inability to walk. Possible spinal infarct. COMPARISON STUDY: December 17, 2019 FINDINGS: Images were acquired in the sagittal axial planes, before and after the administration of 1 0 cc of intravenous Gadavist. The examination was centered on the thoracolumbar junction, as requeste d by the referring clinician. There are innumerable large renal cysts, consistent with autosomal dominant polycystic kidney disease . There is a small central disc protrusion at the T7-8 level. There is an annular fissure and circumfer ential disc bulge at the L2-3 level. There is an fusiform focus of increased T2 signal within the spinal cord extending from the superior T12 level to the superior L1 level. This occupies the anterior two thirds of the spinal cord. The les ion measures 30 mm in length, 8 mm transversely, and 4 mm in AP diameter. There is mild cord expansio n. There is no pathologic enhancement. IMPRESSION: 1. Nonenhancing 30 x 8 x 4 mm intradural intramedullary focus of increased T2 signal involving the sp inal cord from the superior T12 to the superior L1 level. There is mild cord enlargement. The signal abnormality involves the anterior two thirds of the spinal cord. 2. There is no associated vertebral body infarction. 3. The imaging appearance is nonspecific with diagnostic considerations including spinal cord infarct , demyelinating disease, and neoplasm. 4. A spinal cord infarct would be favored, given the clinical presentation, and the apparent change i n the appearance of this lesion from the study performed the prior day. 5. The technologist was notified to bring this patient back for diffusion-weighted imaging. An addend um will be issued upon completion of these additional sequences. ACT 112: Negative or not required by law. Electronically signed by: Emiliano Muñiz M.D. 12/18/2019 3:18 PM
--- NOTE | 2019-12-18 17:43 | Hospitalist Progress Note ---
Date of Service December 18, 2019 Assessment & Plan (1) Spinal cord stroke: Presented with acute onset of bilateral lower extremity weakness, sensory deficit. Initial concern was for Guillain-Arshad or transverse myelitis. These have been ruled out now at this point Initial MRIs of the brain, cervical, thoracic, lumbar spine were all initially negative except for possible focus on the lower thoracic spinal cord Negative inspiratory force and vital capacity was normal. Acute onset and with some improvement in leg weakness today as per neurology makes Guillain-Arshad in transverse myelitis less likely Unfortunately, repeat MRI of the thoracolumbar spine today confirms now likely acute stroke in the anterior two thirds of the spinal cord from T12-L1 level He has no evidence of aortic aneurysm or dissection of the abdominal aorta as per my discussion with radiology based on review of MRI images, no need for CT angiogram especially in light of elevated creatinine Neurology consultation appreciated-Dr. Toledo discussed the case with neurology at [place] again today who recommended switching to aspirin and Plavix x3 weeks then Plavix alone. Most likely plaque rupture event Echocardiogram without interatrial shunt or thrombus, no atrial fibrillation -Discontinue Brilinta, start Plavix 75 mg once daily without loading dose -Continue aspirin 81 mg once daily -cont atorva 80mg daily -Continue dexamethasone as per neurology recommendation and will taper off over the next 3 days for spinal cord swelling -Can DC IV fluids -PT/OT -Continue to monitor on telemetry (2) Bilateral leg weakness: As above (3) Hypertension: Patient remains on losartan and metoprolol for his hypertension, blood pressures controlled (4) Coronary artery disease: With history of STEMI with 2 MELI to the mid LAD in 04/2017 Has remained on DAPT with aspirin and Brilinta since that time Continue high intensity statin Stopping Brilinta as above which is been discussed with cardiology here-he is more than a year out from his stents and okay to stop Brilinta -Continue aspirin Plavix as above No evidence of ischemia, no chest pain (5) Polycystic kidney: Well-known to patient Just moved to the area, she get established with nephrology after discharge Creatinine seems around his baseline at 1.5 (6) CKD (chronic kidney disease) stage 3, GFR 30-59 ml/min: As above, likely secondary to polycystic kidney disease Continue losartan, blood pressure control -Avoid nephrotoxins -renally dose meds when appropriate -follow BMP (7) DVT prophylaxis: Heparin SQ Disposition-continued stay in PCU Admission and Anticipated Discharge Date Admission Date: December 17, 2019 Subjective Patient still has significant weakness and decreased sensation throughout his legs. Denies headache or lightheadedness, no visual changes, no upper extremity weakness. Denies chest pain or shortness of breath. Telemetry with normal sinus rhythm. I discussed his case extensively with neurology and reviewed his previous MRIs with radiology. I went back to see the patient again after review of repeat MRIs today and upon informing him that we believe he had a spinal cord stroke, he was disappointed but accepting of his diagnosis. Our neurologist discussed the case with [place] neurology who recommended switching to Plavix from Brilinta. Discussed his care with cardiology on-call who is in agreement that Brilinta could be stopped. Review of Systems Review of Systems: All systems reviewed & are unremarkable except as noted in HPI & below Physical Exam Constitutional: WD/WN, vitals as above Eyes: PERRL, conjunctivae normal, anicteric sclerae ENMT: external ear and nose normal, oropharynx normal Neck: trachea midline, no thyromegaly Respiratory: normal respiratory effort, lungs clear to auscultation Cardiovascular: RRR, no murmur, no edema Chest (Breasts): Chest: normal inspection of chest Gastrointestinal (Abdomen): normal bowel sounds, soft, nontender, no hepatosp lenomegaly Musculoskeletal: Extremities: extremities normal to inspection; no cyanosis and no clubbing Skin: no rashes, warm and dry Neurologic: CN's II-XI intact bilaterally, + focal motor deficit (1/5 strength in hip flexors, 1/5 strength with plantar flexion bilaterally, otherwise 0/5 strength throughout lower extremities) and awake; + abnormal deep tendon reflexes (Absent reflexes in patellar and Achilles, 2+ upper extremities throughout bilaterally) Motor/Sensory: + sensory deficit (Sensation intact to light touch throughout lower extremities but decreased to pinprick) Psychiatric: A+Ox3, euthymic affect Lymphatic: no lymphedema Results & Data Results & Data ([facility]) Vital Signs (Past 12 Hours) Vital Signs Temp Pulse Pulse Resp BP BP Pulse Ox 12/18/19 15:28 36.8 C 74 24 135/74 97 12/18/19 11:51 37.0 C 75 18 110/76 95 12/18/19 08:20 36.8 C 74 21 137/88 93 Laboratory Results Laboratory values reviewed Diagnostic Findings MRIs all reviewed PG Care Time/CCT Total # of Minutes Spent Total Time Spent with Patient: Total time spent is greater than 50% in coordination of care (as documented) at patient's floor/unit and/or counseling patient: Coding Level of Care Code 82631 Subseq Hosp Care Lvl 3 Diagnoses Spinal cord stroke G95.11 Bilateral leg weakness R29.898 Hypertension I10 Coronary artery disease I25.10 Polycystic kidney Q61.3 CKD (chronic kidney disease) stage 3, GFR 30-59 ml/min N18.30 DVT prophylaxis Z29.9
[2019-12-18] MEDS: ATORVASTATIN 40 MG TAB PO SCH (21:07)
[2019-12-18] MEDS: METOPROLOL SUCC 50MG EXT REL TAB PO SCH (21:07)
[2019-12-19] MEDS: DEXAMETHASONE SOD PHOSPHATE 4 MG in SYRINGE 0 ML IV SCH ×2 (01:50→14:10)
[2019-12-19 05:17] LABS: Hematocrit (blood only) 41.7 % (42-52); Hemoglobin 13.9 g/dL (14.0-18.0); Mean Corpuscular Hemoglobin 30.9 pg (25-34); Mean Corpuscular Hgb Conc 33.3 g/dL (32-36); Mean Corpuscular Volume 92.7 fL (80-100); Mean Platelet Volume 12.1 fL (7.4-10.4); Platelet Count 207 K/uL (130-400); RDW Coefficient of Variation 13.9 % (11.5-14.5); RDW Standard Deviation 46.7 fL (36.4-46.3); White Blood Count 12.89 K/uL (4.8-10.8)
[2019-12-19 05:40] LABS: BUN Creatinine Ratio 24.4 (10-20); Calcium 8.4 mg/dl (8.5-10.1); Creatinine Clr Calc Pharmacy 57.1 ml/min; Est GFR (African American) 52.9; Est GFR (Non-African American) 45.6; Potassium 4.6 mmol/L (3.5-5.1)
[2019-12-19] MEDS: LOSARTAN POTASSIUM 50 MG TAB PO SCH (08:06)
[2019-12-19] MEDS: CLOPIDOGREL BISULFATE 75 MG TAB PO SCH (08:06)
[2019-12-19] MEDS: HEPARIN SOD 5,000 UNIT/0.5 ML VIAL SQ SCH ×2 (08:06→20:08)
[2019-12-19] MEDS: OMEGA-3 (PURIFIED FISH OIL) 1 GM CAP PO SCH (08:06)
[2019-12-19] MEDS: ASPIRIN 81 MG ECTAB PO SCH (08:06)
[2019-12-19] MEDS: MULTIVITAMIN TAB PO SCH (08:06)
[2019-12-19] MEDS: ASCORBIC ACID 500 MG TAB PO SCH (08:06)
--- NOTE | 2019-12-19 10:24 | Neurology Progress Note ---
Date of Service December 19, 2019 Assessment & Plan (1) Bilateral leg weakness: (2) Reflex loss: (3) Numbness and tingling of both legs: This patient had acute onset of lower extremity weakness bilaterally (rather suddenly ) early the morning December 16.. He has significant paresis in the legs but he also has significant sensory loss to pin and marked vibratory sense loss in the lower extremities. Today his neurologic examination is mildly improved in both legs, with more strength in an L5-S1 distribution than an L3-4 distribution. There are no new symptoms and no progression of symptoms. He has no upper motor neuron signs and reflexes are absent in the legs with neutral toes to plantar stimulation. There are no abnormalities in the upper extremities with sensation, motor, or other neurologic deficits. He has no sensory level past the uppers thighs. He does have low back pain, but he has no abdominal pain. He has no bowel or bladder dysfunction. He has no neck pain or other symptoms. MRI of the lower thoracic spine reveals a lesion between T11 and T12 consisten t with cord infarct. There is swelling in this area. This is likely due to the occlusion of a small branch of the abdominal aorta that goes to the lower cord. This case is not consistent with Guillain-Neely syndrome due to the sudden onset and bilateral discreet motor and sensory issues in the legs. Also, he is not progressing neurologically (in fact, he is improving). An acute cord compression has been ruled out by MRI in the thoracic and lumbar spine. Although the MRI of the cervical spine has some C5-6 stenosis, there is no cord impingement. A transverse myelitis should have a progression to it and the LP showed no inflammation or infection. again, fact that he is improved some within 24 hours, would speak against a transverse myelitis. The time frame is more consistent with a stroke. Recommendations: 1. Patient might need a CT/arteriogram of the abdominal aorta and branch vessels , in an effort to visualize is abdominal vascular anatomy, but I am not certain this is necessary, as it likely will not change our treatment. 2. Physical therapy and occupational therapy and consider inpatient rehabilitation hospital stay. 4. Taper off steroids over the next 48 hours. Overall, I spent a total of 40 minutes with this case including review of records, review of MRI films, direct evaluation the patient at bedside, and discussion of the case with the patient at bedside, and Dr. Alcantar, including differential diagnosis and treatment options. Admission and Anticipated Discharge Date Admission Date: December 17, 2019 Subjective The patient overall feels a little bit better today. He is moving his right leg better and feels that perhaps the left leg is about the same. He has no pain and no symptoms in his thorax or arms. MRI of the thoracic spine showed a several centimeter oval shaped lesion in the lower cord from T11-T12 consistent with an infarct. I reviewed these films. yesterday, I talked with Dr. Jazmin Chow, [facility] Stroke neurologist regarding this case. She agree with me that this is a lower spinal cord infarct and that no further testing needs to be done at this time. Treatment would be aspirin plus Plavix for 3 weeks and then Plavix alone. Results & Data ([facility]) Vital Signs (Past 12 Hours) Vital Signs Temp Pulse Resp BP BP Pulse Ox 12/19/19 07:44 36.6 C 65 18 124/91 93 12/19/19 03:50 36.4 C L 67 18 130/80 92 12/18/19 23:53 36.4 C L 66 20 129/83 93 Exam (Neuro) Physical Exam: He is awake and alert. Speech is without aphasia or dysarthria. Mood and affect are normal appropriate. Thought processes are intact with good long and short-term memory. Extraocular eye muscles are intact without nystagmus. There is no facial droop. Tongue is midline. Coordination is normal in the arms and strength is normal and symmetrical in the arms. He has good facility and hands. Reflexes are absent in the quadriceps and Achilles tendons bilaterally. Toes are neutral to plantar stimulation bilaterally. Hip flexors were 0 to 1/5 on the right and 2 to 3/5 on the left. Hip abductors and adductor were 3/4 bilaterally. Quadriceps and tibialis anterior muscles were 0/5 bilaterally. Hamstring and gastrocnemius were 4 /5 bilaterally although the left calf was slightly stronger than the right. Toe extension was 0/5 and flexion was 3/5 bilaterally. Patient has decreased sensation to pin to the mid thighs bilaterally ventrally. Dorsally he has decreased sensation to pin to the back of the knees bilaterally. There is marked vibratory sense loss in the feet bilaterally. PG Care Time/CCT Total # of Minutes Spent Total Time Spent with Patient: Total time spent is greater than 50% in coordination of care (as documented) at patient's floor/unit and/or counseling patient: Coding Level of Care Code 20213 Subseq Hosp Care Lvl 3 Diagnoses Bilateral leg weakness R29.898 Reflex loss R29.2 Numbness and tingling of both legs R20.0; R20.2 Time Spent (min) 40
[2019-12-19] MEDS: METOPROLOL SUCC 50MG EXT REL TAB PO SCH (20:08)
[2019-12-19] MEDS: ATORVASTATIN 40 MG TAB PO SCH (20:08)
--- NOTE | 2019-12-19 22:58 | Hospitalist Progress Note ---
Date of Service December 19, 2019 Assessment & Plan (1) Spinal cord stroke: Presented with acute onset of bilateral lower extremity weakness, sensory deficit. Initial concern was for Guillain-Arshad or transverse myelitis. These have been ruled out now at this point LP performed and CSF was normal, bio fire panel in the CSF was negative, West Nile IgM still pending Initial MRIs of the brain, cervical, thoracic, lumbar spine were all initially negative except for possible focus on the lower thoracic spinal cord Negative inspiratory force and vital capacity was normal. Acute onset and with some improvement in leg weakness the day after presentation as per neurology makes Guillain-Arshad in transverse myelitis less likely Unfortunately, repeat MRI of the thoracolumbar spine the day after admission confirms now likely acute stroke in the anterior two thirds of the spinal cord from T12-L1 level He has no evidence of aortic aneurysm or dissection of the abdominal aorta as per my discussion with radiology based on review of MRI images, no need for CT angiogram especially in light of elevated creatinine Neurology consultation appreciated-Dr. Toledo discussed the case with neurology at [place] again today who recommended switching to aspirin and Plavix x3 weeks then Plavix alone. Most likely plaque rupture event There is no role for transfer for any sort of intervention at this point Echocardiogram without interatrial shunt or thrombus, no atrial fibrillation He did have some improvement in his strength in the lower extremities today. He has loss of vibratory and pinprick sensation but has light touch intact. His bowel and bladder are intact -Discontinued home Brilinta, and started Plavix 75 mg once daily without loading dose -Continue aspirin 81 mg once daily -cont atorva 80mg daily -Continue dexamethasone as per neurology recommendation and will taper off over the next 3 days for spinal cord swelling-decreased today to IV every 12 hours -PT/OT evaluations pending -Continue to monitor on telemetry for arrhythmia (2) Bilateral leg weakness: As above, some slight improvement today Hopefully he will have some recovery (3) Hypertension: Blood pressures are controlled -Continue losartan and metoprolol (4) Coronary artery disease: With history of STEMI with 2 MELI to the mid LAD in 04/2017 Has remained on DAPT with aspirin and Brilinta since that time Continue high intensity statin Stopping Brilinta as above which is been discussed with cardiology here-he is more than a year out from his stents and okay to stop Brilinta -Continue aspirin Plavix as above No evidence of ischemia, no chest pain (5) Polycystic kidney: Well-known to patient Just moved to the area, she get established with nephrology after discharge Creatinine seems around his baseline at 1.5 (6) CKD (chronic kidney disease) stage 3, GFR 30-59 ml/min: As above, likely secondary to polycystic kidney disease Continue losartan, blood pressure control -Avoid nephrotoxins -renally dose meds when appropriate -follow BMP (7) DVT prophylaxis: Heparin SQ Disposition-continued stay in PCU, awaiting PT/OT evaluations and hopefully will transfer to acute rehab tomorrow Admission and Anticipated Discharge Date Admission Date: December 17, 2019 Subjective Patient reports his back pain is gone away. No chest pain or shortness of breath, no abdominal pain. He is able to sense when he has to void and defecate and has been able to control that. He still has no sensation in his legs and is very weak but feels that his left lower extremity is slightly stronger than yesterday. I discussed the case with neurology. Telemetry reviewed with normal sinus rhythm Review of Systems Review of Systems: All systems reviewed & are unremarkable except as noted in HPI & below Physical Exam Constitutional: WD/WN, vitals as above Eyes: + anicteric sclerae ENMT: external ear and nose normal, oropharynx normal Neck: trachea midline, no thyromegaly Respiratory: normal respiratory effort, lungs clear to auscultation Cardiovascular: RRR, no murmur, no edema Chest (Breasts): Chest: normal inspection of chest Gastrointestinal (Abdomen): normal bowel sounds, soft, nontender, no hepatosplenomegaly Musculoskeletal: Extremities: extremities normal to inspection; no cyanosis a nd no clubbing Skin: no rashes, warm and dry Neurologic: + focal motor deficit (2/5 strength in hip flexors, 2/5 strength with plantar flexion bilaterally, otherwise 1/5 strength throughout lower extremities but slightly improved with 2/5 in left hamstrings) and awake; + abnormal deep tendon reflexes (Absent reflexes in patellar and Achilles, 2+ upper extremities throughout bilaterally) Motor/Sensory: + sensory deficit (Sensation intact to light touch throughout lower extremities but decreased to pinprick) Psychiatric: A+Ox3, euthymic affect Lymphatic: no lymphedema Results & Data Results & Data ([facility]) Vital Signs (Past 12 Hours) Vital Signs Temp Pulse Resp BP Pulse Ox 10/22/20 19:09 36.4 C L 67 17 125/81 92 12/19/19 15:34 36.5 C 61 21 122/77 93 12/19/19 12:04 37.3 C 65 20 125/78 93 Laboratory Results 12/19/19 12/19/19 12/19/19 Range/Units 20:16 16:13 11:38 WBC (4.8-10.8) K/uL RBC (4.7-6.1) M/uL Hgb (14.0-18.0) g/dL Hct (42-52) % MCV (80-100) fL MCH (25-34) pg MCHC (32-36) g/dL RDW Std Deviation (36.4-46.3) fL RDW Coeff of Miri (11.5-14.5) % Plt Count (130-400) K/uL MPV (7.4-10.4) fL Sodium (136-145) mmol/L Potassium (3.5-5.1) mmol/L Chloride (98-107) mmol/L Carbon Dioxide (21-32) mmol/L Anion Gap (3-11) BUN (7-18) mg/dl Creatinine (0.6-1.4) mg/dl Est Cr Clr Drug Dosing ml/min Est GFR ( Amer) Est GFR (Non-Af Amer) BUN/Creatinine Ratio (10-20) Glucose (70-99) mg/dl POC Glucose 154 H 115 H 108 H (70-99) mg/dl Calcium (8.5-10.1) mg/dl 12/19/19 12/19/19 12/19/19 Range/Units 07:26 04:38 04:38 WBC 12.89 H (4.8-10.8) K/uL RBC 4.50 L (4.7-6.1) M/uL Hgb 13.9 L (14.0-18.0) g/dL Hct 41.7 L (42-52) % MCV 92.7 (80-100) fL MCH 30.9 (25-34) pg MCHC 33.3 (32-36) g/dL RDW Std Deviation 46.7 H (36.4-46.3) fL RDW Coeff of Miri 13.9 (11.5-14.5) % Plt Count 207 (130-400) K/uL MPV 12.1 H (7.4-10.4) fL Sodium 139 (136-145) mmol/L Potassium 4.6 (3.5-5.1) mmol/L Chloride 110 H (98-107) mmol/L Carbon Dioxide 24 (21-32) mmol/L Anion Gap 5.0 (3-11) BUN 38 H (7-18) mg/dl Creatinine 1.56 H (0.6-1.4) mg/dl Est Cr Clr Drug Dosing 57.1 ml/min Est GFR ( Amer) 52.9 Est GFR (Non-Af Amer) 45.6 BUN/Creatinine Ratio 24.4 H (10-20) Glucose 134 H (70-99) mg/dl POC Glucose 140 H (70-99) mg/dl Calcium 8.4 L (8.5-10.1) mg/dl PG Care Time/CCT Total # of Minutes Spent Total Time Spent with Patient: Total time spent is greater than 50% in coordination of care (as documented) at patient's floor/unit and/or counseling patient: Coding Level of Care Code 64307 Subseq Hosp Care Lvl 3 Diagnoses Spinal cord stroke G95.11 Bilateral leg weakness R29.898 Hypertension I10 Coronary artery disease I25.10 Polycystic kidney Q61.3 CKD (chronic kidney disease) stage 3, GFR 30-59 ml/min N18.30 DVT prophylaxis Z29.9
[2019-12-20] MEDS: DEXAMETHASONE SOD PHOSPHATE 4 MG in SYRINGE 0 ML IV SCH ×2 (01:41→14:15)
[2019-12-20 04:58] LABS: Hematocrit (blood only) 41.7 % (42-52); Hemoglobin 13.6 g/dL (14.0-18.0); Mean Corpuscular Hemoglobin 30.8 pg (25-34); Mean Corpuscular Hgb Conc 32.6 g/dL (32-36); Mean Corpuscular Volume 94.6 fL (80-100); Mean Platelet Volume 12.1 fL (7.4-10.4); Platelet Count 201 K/uL (130-400); Red Blood Count 4.41 M/uL (4.7-6.1); White Blood Count 11.51 K/uL (4.8-10.8)
[2019-12-20 05:16] LABS: BUN Creatinine Ratio 30.1 (10-20); Calcium 8.5 mg/dl (8.5-10.1); Creatinine Clr Calc Pharmacy 57.5 ml/min; Est GFR (African American) 53.7; Est GFR (Non-African American) 46.3; Potassium 5.2 mmol/L (3.5-5.1)
[2019-12-20] MEDS: OMEGA-3 (PURIFIED FISH OIL) 1 GM CAP PO SCH (07:36)
[2019-12-20] MEDS: ASPIRIN 81 MG ECTAB PO SCH (07:36)
[2019-12-20] MEDS: ASCORBIC ACID 500 MG TAB PO SCH (07:36)
[2019-12-20] MEDS: LOSARTAN POTASSIUM 50 MG TAB PO SCH (07:36)
[2019-12-20] MEDS: MULTIVITAMIN TAB PO SCH (07:37)
[2019-12-20] MEDS: HEPARIN SOD 5,000 UNIT/0.5 ML VIAL SQ SCH (07:37)
[2019-12-20] MEDS: CLOPIDOGREL BISULFATE 75 MG TAB PO SCH (07:37)
[2019-12-20] MEDS ORDERED: SODIUM CHLORIDE 0.9% 500 ML IV SCH (09:45)
--- NOTE | 2019-12-20 10:18 | Neurology Progress Note ---
Date of Service December 20, 2019 Assessment & Plan (1) Bilateral leg weakness: (2) Reflex loss: (3) Numbness and tingling of both legs: This patient had acute onset of lower extremity weakness bilaterally (rather suddenly ) early the morning December 16.. He has significant paresis in the legs but he also has significant sensory loss to pin and marked vibratory sense loss in the lower extremities. Today his neurologic examination is somewhat improved in both legs, with more strength in an L5-S1 distribution than an L3-4 distribution. There are no new symptoms and no progression of symptoms. He has no upper motor neuron signs and reflexes are absent in the legs with neutral toes to plantar stimulation. There are no abnormalities in the upper extremities with sensation, motor, or other neurologic deficits. He has no sensory level past the uppers thighs. He does have low back pain, but he has no abdominal pain. He has no bowel or bladder dysfunction. He has no neck pain or other symptoms. MRI of the lower thoracic spine reveals a lesion between T11 and T12 consis tent with cord infarct. There is swelling in this area. This is likely due to the occlusion of a small branch of the abdominal aorta that goes to the lower cord. This case is not consistent with Guillain-Wheatland syndrome due to the sudden onset and bilateral discreet motor and sensory issues in the legs. Also, he is not progressing neurologically (in fact, he is improving). An acute cord compression has been ruled out by MRI in the thoracic and lumbar spine. Although the MRI of the cervical spine has some C5-6 stenosis, there is no cord impingement. A transverse myelitis should have a progression to it and the LP showed no inflammation or infection. again, fact that he is improved some within 24 hours, would speak against a transverse myelitis. The time frame is more consistent with a stroke. Recommendations: 1. Patient might need a CT/arteriogram of the abdominal aorta and branch vessels , in an effort to visualize is abdominal vascular anatomy, but I am not certain this is necessary, as it likely will not change our treatment. 2. the patient is being transferred to inpatient rehabilitation hospital today 3. Taper off steroids 4. continue 81 milligram aspirin +75 milligrams clopidogrel each day for total of 3 weeks, and then continue clopidogrel alone. 5. I can follow up as an outpatient 1-2 weeks after he leaves the rehabilitation hospital. Overall, I spent a total of 25 minutes with this case including review of records, direct evaluation the patient at bedside, and discussion of the case with the patient at bedside, and Dr. Alcantar, including differential diagnosis and treatment options. Admission and Anticipated Discharge Date Admission Date: December 17, 2019 Subjective patient has no pain or headache. He feels that his legs are moving better than yesterday left greater than right side. He has no new issues. Results & Data ([facility]) Vital Signs (Past 12 Hours) Vital Signs Temp Pulse Pulse Resp BP Pulse Ox 12/20/19 04:09 36.3 C L 58 L 18 110/74 94 12/20/19 00:00 56 L 12/19/19 23:38 36.4 C L 61 18 120/89 95 Exam (Neuro) Physical Exam: Patient has 4/5 strength in the hamstrings and gastrocnemius muscles bilaterally. The left quadriceps and hip flexor are now 2/5 and the right is 1/5. Tibialis anterior are 0-1/5 bilaterally. Arms are strong and he has no cranial nerve deficits. Speech and mentation are normal. PG Care Time/CCT Total # of Minutes Spent Total Time Spent with Patient: Total time spent is greater than 50% in coordination of care (as documented) at patient's floor/unit and/or counseling patient: Coding Level of Care Code 74726 Subseq Hosp Care Lvl 2 Diagnoses Bilateral leg weakness R29.898 Reflex loss R29.2 Numbness and tingling of both legs R20.0; R20.2 Time Spent (min) 25
--- NOTE | 2019-12-20 11:14 | Discharge Summary ---
Date of Service December 20, 2019 Admission HPI Per Admitting Provider The patient is a 64-year-old male who states that he has been doing some moderate lifting last few days as he just moved. He says that the lifting was no more than 10 or 15 pounds and he did not notice any changes in his body after he was moving some equipment at home. Last night he went to bed feeling fine. This morning, around 2 hours prior to presentation he awoke and had some 3/10 pressure in his lower back. He had tingling in both feet. Patient got up to go to the bathroom patient did urinate standing without difficulty. On the way back from the bathroom, his legs gave out and he collapsed. He could not stand. Attempted to crawl across the floor which she was unsuccessful he did call EMS. The patient has no headache, no neck pain. He has no upper extremity weakness or tingling. He has no facial asymmetry though he complained of numbness to the emergency room physician to me he said his peripheral sensation was completely intact. He feels his legs are weak and he cannot support his weight. Patient can slightly flex and abduct his knees although he does break to minor pressure he has no pain associate this at all he is areflexic there is no clonus Patient says he is never had issues like this before. He did have an influenza vaccine somewhere in the last 2 weeks. His family says it was the higher dose vaccine. Patient negative imaging of his thoracic and lumbar spine and rel atively unremarkable labs. His significant past history is inclusive of polycystic kidney disease and prostate cancer with a prostatectomy in 2017 and a postoperative hernia which required mesh repair Principal Diagnosis Spinal cord stroke T12-L1 level Discharge Exam Constitutional WD/WN, vitals as above Eyes + anicteric sclerae Neck trachea midline, no thyromegaly Respiratory normal respiratory effort, lungs clear to auscultation Cardiovascular RRR, no murmur, no edema Chest (Breasts) Chest: normal inspection of chest Gastrointestinal (Abdomen) normal bowel sounds, soft, nontender, no hepatosplenomegaly Musculoskeletal Extremities: extremities normal to inspection; no cyanosis and no clubbing Skin no rashes, warm and dry Neurologic + focal motor deficit (3/5 strength in hip flexors, 3/5 strength with plantar flexion bilaterally, otherwise some improvement in quadriceps and hamstrings on the left with 2/5 strength, right remains 1/5 strength) and awake; + abnormal deep tendon reflexes (Absent reflexes in patellar and Achilles, 2+ upper extremities throughout bilaterally) Motor/Sensory: + sensory deficit (Sensation intact to light touch throughout lower extremities but decreased to pinprick and temperature) Psychiatric A+Ox3, euthymic affect Lymphatic no lymphedema Discharge Data Allergies Allergy/AdvReac Type Severity Reaction Status Date / Time No Known Allergies Allergy Verified 12/17/19 07:37 Consultations 12/17/19 11:23 ED Decision to Admit Stat 12/17/19 16:56 Consult Neurology Routine Ordered Studies 12/17/19 07:31 MR lumbar spine wo/w con Stat MR thoracic spine wo/w con Stat 12/17/19 17:25 MR brain wo con Routine MR cervical spine wo/w con Routine 12/18/19 12:01 MR thoracic spine wo/w con Stat Echocardiogram Hospital Course (1) Spinal cord stroke: Presented with acute onset of bilateral lower extremity weakness, sensory deficit. Initial concern was for Guillain-Arshad or transverse myelitis. These have been ruled out now at this point LP performed and CSF was normal, bio fire panel in the CSF was negative, West Nile IgM still pending at the time of discharge Initial MRIs of the brain, cervical, thoracic, lumbar spine were all initially negative except for possible focus on the lower thoracic spinal cord Negative inspiratory force and vital capacity was normal. Acute onset and with some improvement in leg weakness the day after presentation as per neurology made Guillain-Arshad in transverse myelitis less likely Unfortunately, repeat MRI of the thoracolumbar spine the day after admission confirms now likely acute stroke in the anterior two thirds of the spinal cord from T12-L1 level He has no evidence of aortic aneurysm or dissection of the abdominal aorta as per my discussion with radiology based on review of MRI images, no need for CT angiogram especially in light of elevated creatinine His blood pressures in the upper extremities are equal bilaterally which rules out against significant subclavian artery stenosis Neurology consultation appreciated-Dr. Toledo discussed the case with neurology at [place] who recommended switching to aspirin and Plavix x3 weeks then Plavix alone. Most likely plaque rupture event There is no role for transfer for any sort of intervention at this point Echocardiogram without interatrial shunt or thrombus, no atrial fibrillation He did have some improvement in his strength in the lower extremities left greater than right prior to discharge. He has loss of vibratory and pinprick sensation but has light touch intact. His bowel and bladder are intact -Discontinued home Brilinta, and started Plavix 75 mg once daily without loading dose -Continue aspirin 81 mg once daily for at least 3 weeks and then can go to Plavix alone -cont atorva 80mg daily -Received IV dexamethasone for spinal cord swelling as per neurology recommendation and tapering off needs 1 more day of dexamethasone 4 mg p.o. once daily -PT/OT evaluations-appreciated, recommending rehab -Monitored on telemetry for arrhythmia-none (2) Bilateral leg weakness: As above, some slight improvement today Hopefully he will have some more recovery in the strength and sensation of his legs with rehab (3) Hypertension: Blood pressures are controlled -Continue losartan and metoprolol (4) Coronary artery disease: With history of STEMI with 2 MELI to the mid LAD in 04/2017 Has remained on DAPT with aspirin and Brilinta since that time Continue high intensity statin Stopping Brilinta as above which is been discussed with cardiology here-he is more than a year out from his stents and okay to stop Brilinta -Continue aspirin Plavix as above No evidence of ischemia, no chest pain (5) Polycystic kidney: Well-known to patient Just moved to the area, she get established with nephrology after discharge Creatinine seems around his baseline at 1.4-1.5 (6) CKD (chronic kidney disease) stage 3, GFR 30-59 ml/min: As above, likely secondary to polycystic kidney disease Continue losartan, blood pressure control -Avoid nephrotoxins -renally dose meds when appropriate -follow BMP as an outpatient at the rehab He had some mild hyperkalemia on the day of discharge which resolved with a small bolus of IV fluids Follow low potassium diet, low-sodium diet (7) DVT prophylaxis: Heparin SQ Disposition-stable for discharge to acute rehab Total Time Total Time Spent Total Time Spent (In Minutes): 45 minutes Total Time Includes: Examination of the Patient, Discharge Planning, Medication Reconciliation and Communication With Other Providers (Neurology) Discharge Plan Discharge Items Patient Disposition: Transfer Inpatient Rehab Fac Reason For Visit: PERIPHERAL NEUROPATHY Discharge Diagnosis: Spinal cord stroke, paraplegia Condition on Discharge: Fair Activity: As commented below Bathing: No limitations Exercise/Sports: Gradually increase as tolerated Weightbearing: Left partial and Right partial Non-emergency contact: Primary Care Provider and Neurologist Call non-emergency contact if: you have any medication questions and your symptoms worsen Follow-up/Referrals: Lance Toledo MD [Physician] - (Follow up within 1 month after discharge from rehab.) PCP,NO [Primary Care Provider] - (You will need to get established with a PCP after discharge from rehab ) Diet: Heart Healthy, Low Potassium (2gm) and Low Sodium (2gm) Addtl Attending Provider Instructions: You were admitted with leg weakness and found to have a spinal cord stroke unfortunately. Some of the strength in your lower extremities is starting to return and you will require aggressive rehabilitation. Your Brilinta was discontinued and you were started on Plavix instead. Please finish out one more day of dexamethasone 4mg po once daily on 12/21/19. Due to your chronic kidney disease and polycystic kidney disease, you should get established with a [employer] [employer] in the area after discharge. Due to your history of coronary artery disease and stents, you should also continue to follow closely with [facility] who you have seen in the past. Please check a basic metabolic panel in 1-2 days to ensure renal function and potassium levels are acceptable. Pending Studies at Discharge: No Stand-Alone Forms: My [facility] Skilled Items Patient informed of condition?: Yes DNR: No Discharge Level of Care: Acute rehab Communicable Disease: No Discharge Prognosis: Improving Lines: None Urinary Catheter: No Medications and DC Order Prescriptions: New clopidogrel 75 mg Tablet 75 mg PO QAM Qty: 30 RF: 0 dexamethasone 4 mg tablet 4 mg PO DAILY Qty: 1 RF: 0 Continued aspirin 81 mg Tablet,Chewable 81 mg PO QAM RF: 0 metoprolol succinate 50 mg tablet extended release 24 hr 50 mg PO HS Qty: 30 RF: 0 multivitamin Tablet 1 tab PO QAM RF: 0 losartan 50 mg tablet 50 mg PO QAM RF: 0 ascorbic acid (vitamin C) [Vitamin C] 500 mg Tablet 500 mg PO QAM RF: 0 atorvastatin 40 mg tablet 80 mg PO HS RF: 0 Discontinued omega 3-apu-egp-fish oil [Fish Oil] 1,000 mg (120 mg-180 mg) Capsule 1,000 mg PO QAM RF: 0 Brilinta 90 mg Tablet 90 mg PO BID Qty: 60 RF: 0 Discharge Orders: Discharge Order (Routine); Ordered 12/20/19 Ordered By: Jessica Alcantar Admission Data Admit Date/Time: 12/17/19 14:20 Attending Provider: Jessica Alcantar Admit Provider: Jamshid Flor Primary Care Provider: PCP,NO Other Providers: Jamshid Flor ; Lance Toledo ; [facility] Coding Level of Care Code D/C Day Management >30 mins Diagnoses Spinal cord stroke G95.11 Bilateral leg weakness R29.898 Hypertension I10 Coronary artery disease I25.10 Polycystic kidney Q61.3 CKD (chronic kidney disease) stage 3, GFR 30-59 ml/min N18.30 DVT prophylaxis Z29.9
[2019-12-20 12:26] LABS: BUN Creatinine Ratio 30.6 (10-20); Calcium 8.5 mg/dl (8.5-10.1); Creatinine Clr Calc Pharmacy 59.9 ml/min; Est GFR (African American) 56.3; Est GFR (Non-African American) 48.6; Potassium 4.4 mmol/L (3.5-5.1)
== END 2019-12-20 15:25 | DRG 92 ==
LOC: ED 07:01 → SUATTDRO 14:20 → EDINP 14:20 → 1E 23:45